=== PATIENT | female | born 1995 | race African-American/Black ===

== ENCOUNTER → 2016-11-14 | Outpatient (CLI) | payer SELFPAY ==
[2016-05-09 19:13] VITALS: BP 104/68
--- NOTE | 2016-11-14 13:32 | US ---
Examination: Bilateral breast ultrasound. Clinical history: Bilateral breast lumps. Technique: Targeted bilateral breast ultrasound was obtained evaluating the 6 o'clock position in th e left breast and the 12 o'clock position in the right breast in the areas of palpable concern. Comparison: None available. Findings: Targeted left breast ultrasound evaluating the 6 o'clock position in the left breast reveals no sono graphic abnormality. No suspicious cystic or solid mass is noted. Targeted right breast ultrasound evaluating the 12 o'clock position in the right breast reveals no s onographic abnormality. No suspicious cystic or solid mass is noted. Impression: 1. No sonographic evidence of malignancy. BI-RADS category 1-negative. Recommend clinical management, with routine annual screening mammography to start at 40 years of age , or earlier, if clinically indicated. * 0 (ZERO) - ASSESSMENT INCOMPLETE; ADDITIONAL IMAGING IS NEEDED. * 0C - ASSESSMENT INCOMPLETE, NEEDS ADDITIONAL IMAGING EVALUATION AND/OR PRIOR MAMMOGRAMS FOR COMPAR DAVID. * 1/1 (ONE) - NEGATIVE. * 2/II (TWO) - BENIGN FINDINGS. * 3/III (THREE) - PROBABLY BENIGN FINDING; SHORT INTERVAL FOLLOW-UP SUGGESTED. * 4/IV (FOUR) - SUSPICIOUS ABNORMALITY; BIOPSY SHOULD BE CONSIDERED. * 5/V - HIGHLY SUSPICIOUS OF MALIGNANCY; BIOPSY SHOULD BE PERFORMED. * 6/IV - KNOWN BIOPSY PROVEN MALIGNANCY-APPROPRIATE ACTION SHOULD BE TAKEN. A NEGATIVE X-RAY REPORT SHOULD NOT DELAY BIOPSY IF A DOMINANT OR CLINICALLY SUSPICIOUS MASS IS PRESENT; 4 TO 8 PERCENT OF CANCERS ARE NOT IDENTIFIED BY X-RAY. A NEGATIVE REPORT MAY REINFORCE THE CLINICAL IMPRESSION. ADENOSIS AND DENSE BREASTS MAY OBSCURE AN UNDERLYING NEOPLASM. Reported By:
== END ==
LOC: RAD 12:36
PROVIDERS: ATTEND Nurse Practitioner Family
DX: N63 Unspecified lump in breast (principal)
CPT/HCPCS: 76642